=== PATIENT | male | born 2000 | race Caucasian/White ===

== ENCOUNTER 2024-09-04 08:46 | Emergency (ER) | payer BC, SELFPAY ==
[2024-09-04 09:20] VITALS: BP 126/78; BP 127/79; BP 128/80; PULSE 74; PULSE 78; PULSE 81; RESP 18; TEMP 36.8; O2SAT 99; BMI 30.7
--- NOTE | 2024-09-04 09:25 | ED_ITS ---
Discharge Plan Prescriptions Prescriptions: No Action No Known Home Medications Referrals Follow up/Referrals: Christiano Villarreal [Primary Care Provider] - See instructions Clinical Impressions Clinical Impression: Episode of syncope Print Language Print Language: Korean Discharge ED Provider: Jonah Fox [facility] [place] General Stated complaint: loss of consciousness at work Time Seen by Provider: 09/04/24 09:25 History of Present Illness Provider Complaint: He states that he lost consciousness while at work this morning. 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 He denies any known preceding event. He denies that he had just stood up. He states that he was feeling ok then he woke up on the floor. He denies any feelings of his heart racing before the event. He denies that he has been feeling bad or sick recently. He states that he did have 1 similar event in the past and he never really got an answer what caused it. He denies any known history of seizure disorder. Related Data Home Medications ?Medication ?Instructions ?Recorded ?Confirmed No Known Home Medications 09/04/24 09/04/24 Allergies Allergy/AdvReac Type Severity Reaction Status Date / Time No Known Allergies Allergy Verified 09/04/24 09:58 [facility] Disclaimer: The information contained in this section may have been updated after the patient was seen, as this information can be updated by other users. Medical History (Updated 09/04/24 @ 10:10 by Vinod Key APRN) No significant past medical history Social History Smoking Status: Never smoker alcohol intake: never current occupational status: employed ROS Obtained: Yes All systems reviewed & no additional complaints except as documented Constitutional Constitutional: Denies chills and Denies fever(s) Eyes Eyes: Denies eye discharge ENT Ears, Nose, Mouth, and Throat: Denies dizziness, Denies otalgia and Denies sore throat Cardiovascular Cardiovascular: Denies chest pain Respiratory Respiratory: Denies shortness of breath, Denies chest congestion, Denies cough, Denies stridor and Denies wheezing Gastrointestinal Gastrointestingal: Denies nausea or vomiting Musculoskeletal Musculoskeletal: Reports system reviewed and no additional complaints, except as documented and Denies arthralgias Integumentary/Breasts Skin/Breast: Denies rash Neurologic Neurologic: Reports as per HPI, Denies dizziness and Denies paresthesias Allergic/Immunologic Allergic/Immunologic: Denies wheezing Physical Exam General General appearance: alert and in no apparent distress Head Head exam: atraumatic, normocephalic and normal inspection Eye Eye exam: Present normal appearance, PERRL and EOMI ENT ENT exam: Present normal exam, normal oropharynx, mucous membranes moist, TM's normal bilaterally and normal external ear exam Neck Neck exam: Present normal inspection, full ROM and trachea midline; Absent m eningismus or lymphadenopathy Chest Chest inspection: Present normal inspection and symmetric chest wall rise; Absent tenderness Respiratory Respiratory exam: Present normal lung sounds bilaterally; Absent respiratory distress Cardiovascular Cardiovascular exam: Present regular rate and normal rhythm; Absent JVD Abdominal Exam Abdominal exam: Present soft and normal bowel sounds; Absent distention, te nderness or guarding Extremities Exam Extremities exam: Present normal inspection, full ROM and normal capillary refill; Absent calf tenderness Back Exam Back exam: Present normal inspection; Absent tenderness Neurological Exam Neurological exam: Present alert and oriented X3 Psychiatric Psychiatric exam: Present normal affect and normal mood Skin Skin exam: Present warm, dry, intact and normal color Lymphatic Lymphatic Findings: no adenopathy Medical Decision Making Medical Records Medical records reviewed: No I reviewed the patient's medical records. Screening: Per USPSTF and CDC recommendations, given the prevalence of disease in our region, it is our hospital?s policy to screen for HIV and viral Hepatitis for all patients aged 18 and over and those with ongoing risk factors. Jaylen Inquiry Pt receiving controlled substance: No Medical Decision Narrative: He was transferred to the er due to his syncopal episode with no clear etiology.
--- NOTE | 2024-09-04 09:34 | ECG_ITS ---
APPROVED REPORT Exam: Resting ECG HR:63 bpm ECG Measurements Heart Rate 63 AXES FL 152 P 50 QRSd 99 QRS 78 QT 369 T 48 QTc 376 Conclusion SINUS RHYTHM WITH SINUS ARRHYTHMIA NORMAL ECG Electronically signed by : BASILIO GARVEY, 09/05/2024 23:35:30
--- NOTE | 2024-09-04 10:00 | PC.NURSE ---
PATIENT SENT TO ER PER Latrice ALANIZ APRN FOR FURTHER EVALUATION. REPORT GIVEN TO Latrice THAPA RN AND DR. GARVEY. PATIENT AMBULATED TO ER WITH [facility] STAFF AT THIS TIME
[2024-09-04 10:18] VITALS: BP 123/68; PULSE 66; RESP 16; TEMP 36.7; O2SAT 100; BMI 29.5
--- NOTE | 2024-09-04 10:53 | XR_ITS ---
PROCEDURE INFORMATION: Exam: XR Chest Exam date and time: 09/04/2024 10:56 AM Age: 23 years old Clinical indication: Other: Syncope TECHNIQUE: Imaging protocol: Radiologic exam of the chest. Views: 2 views. Total images: 2 COMPARISON: No relevant prior studies available. FINDINGS: Lungs: Unremarkable. No consolidation. Pleural spaces: Unremarkable. No pleural effusion. No pneumothorax. Heart/Mediastinum: Unremarkable. No cardiomegaly. Bones/joints: Unremarkable. IMPRESSION: No acute findings.
--- NOTE | 2024-09-04 10:57 | ED_ITS ---
Discharge Plan Disposition Patient Disposition: Home, Self-Care Chief Complaint: Syncope Prescriptions Prescriptions: No Action No Known Home Medications Referrals Follow up/Referrals: Christiano Villarreal [Primary Care Provider] - See instructions Lyndon Gomez MD [Staff Physician] - See instructions Activity Restrictions/Add. Instructions Additional Instructions/Restrictions: At this time it was felt you are safe to be discharged home. If new or worsening symptoms please do not hesitate to return the emergency department. Please wear your Holter monitor as directed by respiratory therapy and call to schedule an appointment with Dr. Gomez for evaluation. Clinical Impressions Clinical Impression: Episode of syncope Instructions Patient Instructions: DI for Syncope in Adults (Fainting), DI for Syncope in Children (Fainting) Print Language Print Language: Indonesian Discharge ED Provider: Jonah Fox General Adult HPI General Chief complaint: Syncope Stated complaint: loss of consciousness at work Time Seen by Provider: 09/04/24 09:25 Mode of Arrival: Family Vehicle Source of Information: Patient and Medical Record Limitations: No Limitations Description of Symptoms (Recalled from ER Triage Doc. by RN): [facility] a syncopal episode @ 0815 today while walking outside with father. Denies any significant PMH or daily medications. Denies any injury to head, neck, or body from fall. States he might have gotten a little dizzy before episode. Denies any fever, chill, sbody aches, or n/v/d. States he is eating and drinking well. History of Present Illness HPI narrative: Patient is a 23-year-old male with no pertinent past medical history presents emergency department for evaluation of syncope. Patient was standing today at his job when he felt tunnel vision and then had an episode of syncope. He woke up on the ground had rapid return to baseline. No seizure-like activity was witnessed or reported. He is back to baseline now. He does not have chest pain. He has had 1 episode of this prior 6 months ago which he did not have evaluated under similar circumstances. No other acute complaints at this time. No trauma. Related Data Home Medications ?Medication ?Instructions ?Recorded ?Confirmed No Known Home Medications 09/04/24 09/04/24 Allergies Allergy/AdvReac Type Severity Reaction Status Date / Time No Known Allergies Allergy Verified 09/04/24 09:58 [facility] Disclaimer: The information contained in this section may have been updated after the patient was seen, as this information can be updated by other users. Medical History (Updated 09/04/24 @ 10:10 by Vinod Key APRN) No significant past medical history Social History (Updated 09/04/24 @ 10:10 by Vinod Key APRN) Smoking Status: Current every day smoker alcohol intake: never current occupational status: employed Travel in the last 8 weeks: None ROS Obtained: Yes Systems reviewed as appropriate & no additional complaints except as documented Physical Exam General General appearance: alert and in no apparent distress Head Head exam: atraumatic and normocephalic Eye Eye exam: Present PERRL and EOMI ENT ENT exam: Present mucous membranes moist Neck Neck exam: Present normal inspection Chest Chest inspection: Present normal inspection and symmetric chest wall rise Respiratory Respiratory exam: Present normal lung sounds bilaterally; Absent respiratory distress Cardiovascular Cardiovascular exam: Present regular rate and normal rhythm Abdominal Exam Abdominal exam: Present soft Extremities Exam Extremities exam: Present normal inspection Neurological Exam Neurological exam: Present alert and CN II-XII intact; Absent motor sensory deficit Psychiatric Psychiatric exam: Present normal affect Skin Skin exam: Present warm and dry Medical Decision Making Medical Records Screening: Per USPSTF and CDC recommendations, given the prevalence of disease in our region, it is our hospital?s policy to screen for HIV and viral Hepatitis for all patients aged 18 and over and those with ongoing risk factors. Jaylen Inquiry Pt receiving controlled substance: No Vital Signs: 09/04/24 09:20 09/04/24 09:20 09/04/24 10:18 Temperature 98.2 F 98.1 F Temperature Source Oral Oral Pulse Rate [Left Brachial] 74 66 Pulse Rate [Orthostatic Lying Left Brachial] 78 Pulse Rate [Orthostatic Sitting Left Brachial] 74 Pulse Rate [Orthostatic Standing Left Brachial] 81 Respiratory Rate 18 16 Blood Pressure [Left Arm] 127/79 123/68 Blood Pressure [Orthostatic Lying Left Arm] 126/78 Blood Pressure [Orthostatic Sitting Left Arm] 127/79 Blood Pressure [Orthostatic Standing Left Arm] 128/80 Blood Pressure Mean [Left Arm] 95 86 Blood Pressure Source [Left Arm] Automatic Cuff Automatic Cuff Blood Pressure Position [Left Arm] Sitting 02 Sat by Pulse Oximetry 99 100 Oxygen Delivery Method Room Air Room Air Lab Data Lab Results 09/04/24 11:05: WBC 6.6, RBC 5.18, Hgb 16.5, Hct 46.5, MCV 89.7, MCH 31.8 H, M CHC 35.5 H, RDW 13.3, Plt Count 359, MPV 8.1, Neut % (Auto) 68.1, Lymph % (Auto) 24.4, [place] % (Auto) 5.3, Eos % (Auto) 1.1, Baso % (Auto) 1.2, Neut # (Auto) 4.5, Lymph # (Auto) 1.6, [place] # (Auto) 0.4, Eos # (Auto) 0.1, Baso # (Auto) 0.1, Sodium 139, Potassium 5.0, Chloride 105, Carbon Dioxide 26, Anion Gap 13.0, BUN 20, Creatinine 1.10, Estimated Creat Clear 133, Estimated GFR 82, Est GFR ( Amer) 100, Glucose 97, Calcium 9.6, Magnesium 2.0, Total Bilirubin 1.5 H, AST 41, ALT 34, Alkaline Phosphatase 63, Total Protein 8.2, Albumin 5.1 H, Globulin 3.1, Albumin/Globulin Ratio 1.6 09/04/24 11:05 09/04/24 11:05 Orders (Tests/Meds): ORDERS Category Date Time Status CXR 2 view (NOT portable) [XR chest 2V] Stat Exams 09/04/24 10:53 Taken POCUS Point of Care (ER Only) Stat Exams 09/04/24 10:23 Ordered CBC w/Auto Diff [Complete Blood Count Auto Diff] Stat Lab 09/04/24 11:05 Completed CMP [Comprehensive Metabolic Panel] Stat Lab 09/04/24 11:05 Completed MG [Magnesium] Stat Lab 09/04/24 11:05 Completed ECG Data Tracing #1: Independently interpreted by me rate is 63, rhythm is regular, axis is borderline rightward deviated, no ST elevation in anatomical contiguous leads, QTc 376, no dagger Q waves in the lateral leads, no delta wave, no high degree AV block. Medical Decision Narrative: In summary patient is a 23-year-old male past medical history described above who presents emergency department for evaluation of syncope. Patient is hemodynamically stable and nontoxic-appearing upon arrival, afebrile. History and physical consistent with vasovagal syncope however differential includes cardiogenic syncope, among others. Workup will be conducted with hematologic labs, two-view chest x-ray, EKG. No initial interventions are indicated. Intracranial imaging was considered however no significant trauma no history of bleeding diathesis or anticoagulants will be deferred. Initial workup reviewed by me, hematologic labs are nonactionable, no FER or critical electrolyte abnormalities, no significant leukocytosis. Chest x-ray informally visualized by me, no acute lobar opacities or large pneumothorax. Upon repeat evaluation patient was well-appearing. Patient be fitted for a 24-hour Holter monitor and will follow-up with cardiology and is appropriate for outpatient management at this time was given return precautions and verbalized understanding. Indication: Syncope Identified cardiac views: Cardiac parasternal long axis and parasternal short axis Findings: Cardiac activity present, gross wall motion normal, no large pericardial effusion, no thickened interventricular septum. Impression: -From above Images were saved to permanent archive The study was technically adequate CPT: 63600 This study was performed by me, and I personally interpreted all images/videos. Based on my clinical judgement, these images were adequate and did not necessitate further imaging. Critical Care Critical Care Time Critical Care Time: No
[2024-09-04 11:24] LABS: Chloride 105 mmol/L (98-107)
[2024-09-04 11:25] LABS: Albumin Level 5.1 g/dl (3.5-5.0); Basophils # 0.1 K/mm3 (0-0.2); Basophils % 1.2 % (0.1-2.0); Eosinophils # 0.1 K/mm3 (0.0-0.4); Eosinophils % 1.1 % (0.1-12.0); Hematocrit 46.5 % (42.0-52.0); Hemoglobin 16.5 g/dL (14.1-18.0); Lymphocytes # 1.6 K/mm3 (0.7-4.5); Lymphocytes % 24.4 % (10-50); Mean Corpuscular HGB Conc 35.5 g/dL (31.8-35.4); Mean Corpuscular Hemoglobin 31.8 pg (27.0-31.2); Mean Corpuscular Volume 89.7 fl (80-94); Mean Platelet Volume 8.1 fl (7.4-10.4); Monocytes # 0.4 K/mm3 (0.1-1.0); Monocytes % 5.3 % (1.7-9.3); Neutrophils # 4.5 K/mm3 (1.8-7.8); Neutrophils % 68.1 % (37.0-80.0); Platelet Count 359 K/mm3 (142-424); Red Blood Count 5.18 M/mm3 (4.60-6.20); Red Cell Distribution Width 13.3 % (11.5-17.5); Sodium 139 mmol/L (136-145); White Blood Count 6.6 K/mm3 (4.8-10.8)
[2024-09-04 11:27] LABS: Alanine Aminotransferase 34 U/L (12-78); Albumin/Globulin Ratio 1.6 (1.1-1.8); Aspartate Amino Transferase 41 U/L (17-59); Blood Urea Nitrogen 20 mg/dl (9-20); Carbon Dioxide 26 mmol/L (22.0-30.0); Creatinine Clearance Estimated 133 mL/min (50-200); Estimated Glomerular Filt Rate 82 ml/min (>60); GFR (African American) 100 ML/MIN (>60); Globulin 3.1 g/dL (1.3-3.2); Total Protein,Serum 8.2 g/dl (6.3-8.2)
[2024-09-04 11:28] LABS: Alkaline Phosphatase 63 U/L (38-126); Bilirubin,Total 1.5 mg/dl (0.2-1.3); Calcium 9.6 mg/dl (8.4-10.2); Glucose 97 mg/dl (74-100)
[2024-09-04 12:05] VITALS: BP 123/63; PULSE 66; RESP 16; TEMP 36.7; O2SAT 99
== END 2024-09-04 12:06 | disposition home or self-care (01) ==
LOC: UTC 08:57 → ER 10:03
PROVIDERS: Emergency Provider Emergency Medicine; PCP Family Medicine
DX: R55 Syncope and collapse (principal)
CPT/HCPCS: 71046; 80053; 83735; 85025; 93005; 93225; 93227; 99284